=== PATIENT | female | born 1955 | race Caucasian/White ===

== ENCOUNTER 2023-11-06 08:40 | Inpatient (IN) | payer BC, MEDICARE, SELFPAY ==
[2023-10-27 10:52] LABS: Hematocrit 35.5 % (37.0-47.0); Hemoglobin 11.8 g/dL (12.0-16.0); Mean Corp Hgb Conc. 33.2 g/dL (33.0-37.0); Mean Corpuscular Volume 84.1 fL (81.0-99.0); Platelet Count 404 10^3/uL (130-400); Red Blood Cell Count 4.22 10^6/uL (4.20-5.40); Red Cell Dist. Width 12.5 % (11.5-14.5); White Blood Cell Count 9.8 10^3/uL (4.8-10.8)
[2023-10-27 11:04] LABS: ALT (SGPT) 14 U/L (0-35); AST (SGOT) 24 U/L (14-36); Albumin 4.5 g/dl (3.5-5.0); Alkaline Phosphatase 79 U/L (38-126); Blood Urea Nitrogen 21 mg/dl (7-17); Calcium 10.1 mg/dl (8.4-10.2); Carbon Dioxide 29 mmol/L (22-30); Chloride 98 mmol/L (98-107); Glucose 96 mg/dl (70-99); Potassium 4.4 mmol/L (3.5-5.1); Sodium 135 mmol/L (135-145); Total Bilirubin 0.3 mg/dl (0.2-1.3); Total Protein 7.5 g/dl (6.3-8.2); eGFR > 60.00
--- NOTE | 2023-10-27 11:19 | VNURNOTE ---
Patient is scheduled for an elective R shoulder revision on 10/30/23- she is a [facility] patient. Spoke with patient over the phone. Introduced role of [facility]. Patient lives alone with 2 cats in apt with elevator. 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
She confirms she has a shoulder sling. There is a potential for IV antibiotics - TBD. At baseline, patient is independent and thinks she can manage IV antibiotics at home, if needed. Understandably, she is concerned about where the PICC line
might be v. surgical arm restriction. Explained to patient that [facility] does not administer IV meds in the home or manage PICCs. Outside infusion company would be coordinated ? [facility]?
PCP is Dr Summers.
Discussed [facility], nursing and OT at home and post surgical plans. Patient wants to think about nursing and OT. [facility] Intake aware of potential need post-op.
Plan: Referral for [facility] entered in [facility] in case needed. CM to be updated day of surgery with potential IV antibiotic needs.
[2023-10-27 11:22] LABS: Glycohemoglobin (HgbA1c) 6.2 % (4.0-5.6)
[2023-10-27 14:18] VITALS: BMI 22.3
--- NOTE | 2023-11-04 12:48 | VNURNOTE ---
Surgery re-scheduled for 11/05. [facility] Referral updated in [facility].
[2023-11-06] VITALS (13 sets, daily range): BP systolic 112–163; BP diastolic 60–78; PULSE 75; O2SAT 99; BMI 22.3
[2023-11-06] MEDS: NORMOSOL-R 1000 IV ×2 (09:40→14:29)
[2023-11-06] MEDS: CELEBREX 200 MG PO (09:40)
[2023-11-06] MEDS: ZOFRAN 4 MG IV ×2 (14:32→20:51)
[2023-11-06] MEDS: NORCO 5/325 1 TABLET PO (14:44)
--- NOTE | 2023-11-06 15:35 | PTCARENOTE ---
Patient received from PACU in bed; Patient with RUE in sling, non-weight bearing; Bilateral radial pulse +2 to palpation, capillary refill <3 seconds in right hand; Patient has mild loss of sensation to RUE, trace movement to fingers; Patient denies
pain at this time; Patient was nauseous in PACU, nausea is resolving, no vomiting; Patient ambulated to bathroom to void, standby assist; Patient now back in bed; Call fox within reach; Bed in lowest position, wheels locked; IVF infusing; Patient
oriented to room and unit; Assessment ongoing
--- NOTE | 2023-11-06 16:14 | CM ---
Met with patient at bedside; initial assessment completed
Pharmacy verified; [facility] [address], [place], [place]
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
No SNF history
No DME
Friend or family will provide transport home
Plan: Discharge to home with home infusion therapy;
Dianne from [facility] notified via phone; she will follow up with CM on Thursday;
Home Health referral sent to [facility] via [facility]
--- NOTE | 2023-11-06 16:56 | CON.ID ---
Consultation
-
Date/Time Consultation Requested: 11/06/2023 1019
Date/Time Consultation Performed: 11/06/2023 1600
Requesting Provider: Dr. Woodward
Performing Provider: Dr. Amanda
Reason for Consultation: Right shoulder PJI
Chief Complaint / Past History
History of Present Illness
Tracy Sewell is a 68-year-old female being evaluated at the request of Dr. 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 History is obtained from chart review, along with patient interview.
The patient reports that she underwent right shoulder revision in 2020 and in the interim has done quite well. She notes that she was in [place] in early July 2023, but upon return she began to have pain in the shoulder area. She notes that workup
included imaging which showed multiple fluid collections and on 10/26 she was seen in the Orthopedics office, and reviewed notes indicate that she had a palpable effusion. She underwent aspiration with reports that the Synovasure labs were negative,
but she was found to have a significant white count. Today she was admitted to the hospital and underwent explantation of the right shoulder hardware and spacer insertion.
Over the past several months she has complained of ongoing pain along with swelling, but did not notice any redness. She reports that outside labs were negative for Lyme. She denies any prior fevers or chills.
Past History
Additional Past Medical History:
HTN
Endometrial cancer
Mitral valve prolapse
IBS
Dyslipidemia
Thyroid nodule
Additional Past Surgical History:
DANA
Thyroidectomy
Right shoulder surgery (2020)
Allergy History:
cefaclor [From Ceclor] Allergy (Verified 11/06/23 09:13)
Hives; but tolerated recent cefadroxil
clindamycin Allergy (Verified 11/06/23 09:13)
Hives, rash
Penicillins Allergy (Verified 11/06/23 09:13)
Rash but notes OK with amoxicillin / augmentin
sulfamethoxazole [From Bactrim] Allergy (Verified 11/06/23 09:13)
HIVES, thrush (orally), dermatitis
vancomycin Allergy (Verified 11/06/23 09:13)
Rash
Current Antibiotics:
None
Social History
Tobacco: Non-Smoker
Alcohol: Occasional
Drug: None
Personal: Single
Living: Alone
Employment: Employed
Family History
Family History: Not Pertinent
Review of Systems
Vital Signs
Temp Pulse Resp BP Pulse Ox
98.5 F 80 18 163/73 98
11/06/23 16:14 11/06/23 16:14 11/06/23 16:14 11/06/23 16:14 11/06/23 16:14
Physical Exam
Physical Exam
Constitutional: No Acute Distress, Comfortable and Non-toxic
Eyes: Pupils Equal, No Conjunctival Hemorrhage and Sclera Anicteric
Oral: No Thrush
Cardiovascular: Regular Rate and S1/S2; Negative S3/S4
Pulmonary: Negative Wheezes, Rales or Rhonchi
Gastrointestinal: Soft, Non Tender, Non Distended and Normal Bowel Sounds
Musculoskeletal: Other (Right shoulder dressing in place. No surrounding erythema)
Skin: Warm and Dry; Negative Rash or Jaundice
Neurological: Awake, Alert and Oriented
Lab / Diagnostic Study Results
10/27/23 09:47
10/27/23 09:47
Microbiology Results
Micro:
11/06/23 12:59 Body Fluid Culture - Pending
Synovial Fluid Gram Stain - Final
11/06/23 13:16 Fungal Culture - Pending
Shoulder - Right
11/06/23 12:59 Fungal Culture - Pending
Shoulder - Right
11/06/23 12:49 Fungal Culture - Pending
Shoulder - Right
11/06/23 13:16 Tissue Culture - Pending
Shoulder - Right Gram Stain - Pending
11/06/23 12:59 Tissue Culture - Pending
Shoulder - Right Gram Stain - Pending
11/06/23 12:59 Tissue Culture - Pending
Shoulder - Right Gram Stain - Pending
11/06/23 12:59 Fungal Culture - Pending
Shoulder - Right
11/06/23 12:59 Fungal Culture - Pending
Shoulder - Right
11/06/23 12:59 Fungal Culture - Pending
Shoulder - Right
11/06/23 12:59 Tissue Culture - Pending
Shoulder - Right Gram Stain - Pending
11/06/23 12:59 Tissue Culture - Pending
Shoulder - Right Gram Stain - Pending
11/06/23 12:59 Tissue Culture - Pending
Shoulder - Right Gram Stain - Pending
10/27/23 09:47 MRSA Screen - Final
Nose No Methicillin Resistant Staphylococcus aureus isolated.
Assessment / Plan
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
- s/p hardware removal/spacer placement 11/06/2023
HTN
Endometrial cancer
Mitral valve prolapse
IBS
Dyslipidemia
Thyroid nodule
Recommendations:
Cultures are currently pending. Will initiate empiric antibiotic therapy. I had a long discussion regarding reported allergies, and is not clear whether vancomycin is truly an allergy or possibly was given too quickly on prior administration
Will begin therapy with vancomycin. I have ordered it to be given over an extended infusion to prevent any ''red man' syndrome'.
Will await further culture data to hopefully guide further antibiotic therapy.
Will check routine labs in the morning.
Care Review
Plan reviewed with: Physician (Ortho)
[2023-11-06] MEDS: LIPITOR 10 MG PO (17:02)
[2023-11-06] MEDS: ASPIRIN 325 MG PO (17:02)
--- NOTE | 2023-11-06 17:12 | VNURNOTE ---
Received update from RADHA Gray choosing [facility]. Laurita at [facility] Intake aware, referral cancelled.
[2023-11-06] MEDS: VANCOCIN 300 MG IV (17:46)
[2023-11-06] MEDS: VANCOCIN 300 ML IV (17:46)
--- NOTE | 2023-11-06 17:50 | PHA.VAN.IN ---
Assessment
- Assessment
Renal Function: Appears similar to baseline
Concomitant Antimicrobials: NONE
- Previous Dosing Experience
Previous Regimen: NONE
AUC Dosing Plan
- Dosing Variables
Dosing Weight (kg): 57.9
Dosing CrCl (ml/min): 50
Vd coefficient (L/kg): 0.7
E
- Empiric Dosing
Initial / Loading Dose: 1500MG OVER 3 HOURS
Maintenance Regimen: 1GM IV Q24H OVER 2 HOURS
Estimated AUC (mcg*h/mL): 550
Estimated Peak (mcg*h/mL): 37
Estimated Trough (mcg/ml): 12.9
Estimated Half Life (H): 15
EXTENDED INFUSION TIME PER ID REQUEST FOR POSSIBLE RED MAN'S SYNDROME
Pharmacokinetics Vancomycin I
- -
Patient Age: 68
Vancomycin Day #: 1
Indication: Bone And Joint (SHOULDER )
Requesting Provider: TRINI
Pertinent Antimicrobial Allergies:
Allergies
Penicillins Allergy (Verified 11/06/23 09:13)
Rash
childhood
cefaclor [From Ceclor] Allergy (Verified 11/06/23 09:13)
Hives
Hives, joint pain/swelling. Remote; >10 y/a.
clindamycin Allergy (Verified 11/06/23 09:13)
Hives, rash
sulfamethoxazole [From Bactrim] Allergy (Verified 11/06/23 09:13)
HIVES, thrush (orally), dermatitis
trimethoprim [From Bactrim] Allergy (Verified 11/06/23 09:13)
HIVES, thrush (orally), dermatitis
vancomycin Allergy (Verified 11/06/23 09:13)
Rash
Height / Weight:
Height 5 ft 3.5 in
Actual Weight 57.9 kg
- Vital Signs / Lab Results
Temp Pulse Resp BP Pulse Ox
97.8 F 87 18 117/70 98
11/06/23 17:14 11/06/23 17:14 11/06/23 17:14 11/06/23 17:14 11/06/23 17:14
Microbiology Results
11/06/23 12:59 Gram Stain - Preliminary
Shoulder - Right
11/06/23 12:59 Gram Stain - Final
Synovial Fluid
[2023-11-06] MEDS: BACTROBAN 2% OINTMENT 1 APPLIC NASAL (20:43)
[2023-11-06] MEDS: COLACE 100 MG PO (20:43)
[2023-11-06] MEDS: COSOPT EYE DROPS 1 DROP BOTH EYES (20:44)
[2023-11-06] MEDS: TORADOL 15 MG IV (20:44)
[2023-11-06] MEDS: SENOKOT 17.2 MG PO (20:44)
[2023-11-06] MEDS: VISBIOME 1 CAP PO (20:45)
[2023-11-06] MEDS: FIBERCON 1250 MG PO (23:12)
[2023-11-06] MEDS: NEURONTIN 300 MG PO (23:30)
[2023-11-06] MEDS: PROTONIX 40 MG PO (23:30)
[2023-11-06] MEDS: XALATAN OPHTHALMIC SOLUTION 1 DROP BOTH EYES (23:31)
[2023-11-07] VITALS (7 sets, daily range): BP systolic 98–135; BP diastolic 57–77; BMI 22.3
[2023-11-07] MEDS: VANCOCIN 200 IV (06:07)
[2023-11-07] MEDS: SYNTHROID 88 MCG PO (06:07)
[2023-11-07 07:04] LABS: % Basophils 0.3 % (0-2); % Eosinophils 0.1 % (0-6); % Immature Granulocytes 0.4 % (0-0.5); % Lymphocytes 12.1 % (20.5-51.1); % Monocytes 7.4 % (1.7-9.3); % Neutrophils 79.7 % (42.2-75.2); Absolute Lymphocytes 1.2 10^3/uL (1.2-3.4); Absolute Monocytes 0.7 10^3/uL (0.1-0.6); Absolute Neutrophils 7.6 10^3/uL (1.4-6.5); Hematocrit 27.2 % (37.0-47.0); Hemoglobin 8.9 g/dL (12.0-16.0); Mean Corp Hgb Conc. 32.7 g/dL (33.0-37.0); Mean Corpuscular Hgb 27.5 pg (27.0-31.0); Nucleated Red Blood Cells % 0 %; Platelet Count 345 10^3/uL (130-400); Red Blood Cell Count 3.24 10^6/uL (4.20-5.40); Red Cell Dist. Width 12.6 % (11.5-14.5); White Blood Cell Count 9.6 10^3/uL (4.8-10.8)
[2023-11-07 07:28] LABS: Blood Urea Nitrogen 17 mg/dl (7-17); Calcium 8.4 mg/dl (8.4-10.2); Carbon Dioxide 23 mmol/L (22-30); Chloride 105 mmol/L (98-107); Estimated Creatinine Clearance 50 ml/min; Glucose 115 mg/dl (70-99); Potassium 3.8 mmol/L (3.5-5.1); Sodium 139 mmol/L (135-145); eGFR > 60.00
[2023-11-07 07:57] LABS: Erythrocyte Sed Rate 66 mm/hour (0-20)
[2023-11-07] MEDS: ASPIRIN 325 MG PO (08:09)
[2023-11-07] MEDS: TORADOL 15 MG IV ×2 (08:10→20:31)
[2023-11-07] MEDS: COLACE 100 MG PO (08:10)
[2023-11-07] MEDS: SENOKOT 17.2 MG PO (08:15)
[2023-11-07] MEDS: VISBIOME 1 CAP PO ×2 (08:16→20:30)
[2023-11-07] MEDS: FIBERCON 625 MG PO (08:16)
[2023-11-07] MEDS: BACTROBAN 2% OINTMENT 1 APPLIC NASAL ×2 (08:24→20:32)
[2023-11-07] MEDS: COSOPT EYE DROPS 1 DROP BOTH EYES ×2 (08:25→20:32)
--- NOTE | 2023-11-07 08:39 | PHA.VAN.FU ---
Vancomycin Assessment / Plan
- Assessment
Renal Function: Stable
WBC's are: WNL
In the past 24 hrs, patient has been: Afebrile
- Dosing Plan
Continue: vancomycin 1000 mg q24h - first dose 11/06 599
Dosing Comments: dose given over 2 hours to prevent any reaction
- Monitoring Plan
No level(s) ordered at this time: consider levels when pt nears steady state
- Follow Up
Pharmacy will continue to follow.
Vancomycin Follow UP
- -
Patient Age: 68
Vancomycin Day #: 2
Indication: Bone And Joint (SHOULDER )
Requesting Provider: TRINI
Pertinent Antimicrobial Allergies:
Allergies
Penicillins Allergy (Verified 11/06/23 09:13)
Rash
childhood
cefaclor [From Ceclor] Allergy (Verified 11/06/23 09:13)
Hives
Hives, joint pain/swelling. Remote; >10 y/a.
clindamycin Allergy (Verified 11/06/23 09:13)
Hives, rash
sulfamethoxazole [From Bactrim] Allergy (Verified 11/06/23 09:13)
HIVES, thrush (orally), dermatitis
trimethoprim [From Bactrim] Allergy (Verified 11/06/23 09:13)
HIVES, thrush (orally), dermatitis
vancomycin Allergy (Verified 11/06/23 09:13)
Rash
Height / Weight:
Height 5 ft 3.5 in
Actual Weight 57.9 kg
Pertinent Past Medical History: R shoulder revision 2020
- Vital Signs / Lab Results
Temp Pulse Resp BP Pulse Ox
97.9 F 85 16 109/57 97
11/07/23 06:15 11/07/23 06:15 11/07/23 06:15 11/07/23 06:15 11/07/23 06:15
Lab Results - Hematology
11/07/23
06:11
WBC 9.6
Lab Results - Chemistry
11/07/23
06:10
BUN 17
Creatinine 0.9
Estimated Creat Clear 50
Microbiology Results
11/06/23 13:16 Gram Stain - Preliminary
Shoulder - Right
11/06/23 12:59 Gram Stain - Preliminary
Shoulder - Right
11/06/23 12:59 Gram Stain - Preliminary
Shoulder - Right
11/06/23 12:59 Gram Stain - Preliminary
Shoulder - Right
11/06/23 12:59 Gram Stain - Preliminary
Shoulder - Right
11/06/23 12:59 Gram Stain - Preliminary
Shoulder - Right
11/06/23 12:59 Gram Stain - Final
Synovial Fluid
--- NOTE | 2023-11-07 10:05 | W.PN.ORTHO ---
Today's Communication / Plan
-
68-year-old female POD 1 1st Stage Revision R RTSA for PJI, SHERYL, Placement of antibiotic spacer 11/[address] Woodward
- Appreciate ID recommendations. Transitioning from Vancomycin to Ceftriaxone.
- Continue to follow intra-op cultures.
- ESR 66, CRP 62.40. WBC WNL.
- Sling to RUE.
- ASA 325mg once daily x 4 weeks for DVT ppx.
- Pain control.
- Orthopedic surgery will continue to follow along.
Assessment
.
Distal Motor Intact: Yes
Dressing:
Clean, dry and intact.
Scant contained bloody drainage noted within Aquacel dressing.
Sling intact.
Digital ROM intact.
Assessment:
POD 1 1st Stage Revision R RTSA, SHERYL, Placement of antibiotic spacer
Plan
.
Surgery / Date: 11/07/[address] Woodward
DVT Prophylaxis: Aspirin
Activity:
Out of bed.
PT/OT
Discharge Information:
Appreciate CM
Subjective
.
.:
Patient resting comfortably. Reports that her pain has significantly improved since surgery yesterday.
Vital Signs and Labs
.
Vital Signs and Labs:
Lab Results
11/07/23 06:11
11/07/23 06:10
Temp Pulse Resp BP Pulse Ox
98.3 F 79 14 131/70 99
11/07/23 09:04 11/07/23 09:04 11/07/23 09:04 11/07/23 09:04 11/07/23 09:04
Non-invasive Hgb result: labs
--- NOTE | 2023-11-07 10:07 | W.PN.ID1 ---
Date of Service
Date of Service: November 07, 2023
Today's Communication
Continue antibiotics. Transition vancomycin to ceftriaxone.
Assessment / Plan
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
- s/p hardware removal/spacer placement 11/06/2023
Elevated ESR and CRP
HTN
Endometrial cancer
Mitral valve prolapse
IBS
Dyslipidemia
Thyroid nodule
Recommendations:
Cultures are currently pending.
Patient has noted a macular rash on the abdomen today. Although not classic for vancomycin, will discontinue and transition to once daily ceftriaxone with close observation.
Will await further culture data to hopefully guide further antibiotic therapy.
Will check routine labs in the morning.
����������������������������������������������������������
Chief Complaint
-: Other (right shoulder PJI)
Subjective / Review of Systems
Patient seen and examined. Reports some degree of rash on her abdomen today. No shortness of breath.
Review of Systems: No Fever and No Chills
Vital Signs / Physical Exam
Vital Signs
Vital Signs
Temp Pulse Resp BP Pulse Ox
98.3 F 79 14 131/70 99
11/07/23 09:04 11/07/23 09:04 11/07/23 09:04 11/07/23 09:04 11/07/23 09:04
Physical Exam
Constitutional: No Acute Distress, Comfortable and Non-toxic
Eyes: Sclera Anicteric
Cardiovascular: S1/S2; Negative S3/S4
Pulmonary: Non Labored
Gastrointestinal: Soft and Non Tender
Skin: Rash (Very mild macular rash noted on abdomen, but no other areas on the body.)
Neurological: Awake and Alert
Psychological: Calm
Objective Data
Lab Data
Lab Results
11/07/23 06:11
11/07/23 06:10
ESR 66 mm/hour (0-20) H 11/07/23 06:11
Estimated Creat Clear 50 ml/min 11/07/23 06:10
Total Bilirubin 0.3 mg/dl (0.2-1.3) 10/27/23 09:47
AST 24 U/L (14-36) 10/27/23 09:47
ALT 14 U/L (0-35) 10/27/23 09:47
Alkaline Phosphatase 79 U/L (38-126) 10/27/23 09:47
C-Reactive Protein 62.40 mg/L (0.0-10.00) H 11/07/23 06:10
Most recent labs reviewed.
Micro Results:
11/06/23 12:59 Body Fluid Culture - Pending
Synovial Fluid Gram Stain - Final
11/06/23 13:16 Tissue Culture - Pending
Shoulder - Right Gram Stain - Preliminary
11/06/23 12:59 Tissue Culture - Pending
Shoulder - Right Gram Stain - Preliminary
11/06/23 12:59 Tissue Culture - Pending
Shoulder - Right Gram Stain - Preliminary
11/06/23 12:59 Tissue Culture - Pending
Shoulder - Right Gram Stain - Preliminary
11/06/23 12:59 Tissue Culture - Pending
Shoulder - Right Gram Stain - Preliminary
11/06/23 12:59 Tissue Culture - Pending
Shoulder - Right Gram Stain - Preliminary
11/06/23 13:16 Fungal Culture - Pending
Shoulder - Right
11/06/23 12:59 Fungal Culture - Pending
Shoulder - Right
11/06/23 12:49 Fungal Culture - Pending
Shoulder - Right
11/06/23 12:59 Fungal Culture - Pending
Shoulder - Right
11/06/23 12:59 Fungal Culture - Pending
Shoulder - Right
11/06/23 12:59 Fungal Culture - Pending
Shoulder - Right
10/27/23 09:47 MRSA Screen - Final
Nose No Methicillin Resistant Staphylococcus aureus isolated.
Care Review
Plan reviewed with: Other Provider (Ortho)
[2023-11-07] MEDS: STERILE WATER FOR INJECTION 20 ML IV (12:46)
[2023-11-07] MEDS: ROCEPHIN 2000 MG IV (12:50)
[2023-11-07] MEDS: NORCO 5/325 1 TABLET PO (12:57)
[2023-11-07] MEDS: SENOKOT PO (20:29)
[2023-11-07] MEDS: COLACE PO (20:29)
[2023-11-07] MEDS: PROTONIX 40 MG PO (20:30)
[2023-11-07] MEDS: FIBERCON 1250 MG PO (20:30)
[2023-11-07] MEDS: NEURONTIN 300 MG PO (20:30)
[2023-11-07] MEDS: XALATAN OPHTHALMIC SOLUTION 1 DROP BOTH EYES (20:54)
[2023-11-07] MEDS: BENADRYL 25 MG PO (20:54)
[2023-11-08] MEDS: NORCO 5/325 1 TABLET PO (04:23)
[2023-11-08] MEDS: FIBERCON 625 MG PO (07:33)
[2023-11-08] MEDS: VISBIOME 1 CAP PO ×2 (07:33→19:28)
[2023-11-08] MEDS: ASPIRIN 325 MG PO (07:33)
[2023-11-08] MEDS: COSOPT EYE DROPS 1 DROP BOTH EYES ×2 (07:34→19:32)
[2023-11-08] MEDS: COLACE PO ×2 (07:37→19:28)
[2023-11-08] MEDS: SENOKOT PO ×2 (07:38→19:28)
[2023-11-08 07:40] VITALS: BP 116/68
--- NOTE | 2023-11-08 08:43 | W.PN.ORTHO ---
Today's Communication / Plan
-
68-year-old female POD 2 1st Stage Revision R RTSA for PJI, SHERYL, Placement of antibiotic spacer 11/[address] Woodward
- Appreciate ID recommendations. Currently on Ceftriaxone.
- Continue to follow intra-op cultures. Preliminary cultures without growth after 18-24 hours.
- 11/06 Labs: ESR 66, CRP 62.40. WBC WNL.
- Sling to RUE.
- ASA 325mg once daily x 4 weeks for DVT ppx.
- Pain control.
- Orthopedic surgery will continue to follow along.
Assessment
.
Distal Motor Intact: Yes
Dressing:
Clean, dry and intact.
Scant contained bloody drainage noted within Aquacel dressing (stable).
Sling intact.
Digital ROM intact.
Assessment:
POD 2 1st Stage Revision R RTSA, SHERYL, Placement of antibiotic spacer
Plan
.
Surgery / Date: 11/07/[address] Woodward
DVT Prophylaxis: Aspirin
Activity:
Out of bed.
PT/OT
Discharge Information:
Appreciate CM
Subjective
.
.:
Patient resting comfortably. No new complaints overnight. Continues to report improvement in her pain since surgery Thursday.
Vital Signs and Labs
.
Vital Signs and Labs:
Lab Results
11/07/23 06:11
11/07/23 06:10
Temp Pulse Resp BP Pulse Ox
98.6 F 86 12 116/68 96
11/08/23 07:40 11/08/23 07:40 11/08/23 07:40 11/08/23 07:40 11/08/23 07:40
Non-invasive Hgb result: 11.4
--- NOTE | 2023-11-08 10:57 | W.PN.ID1 ---
Date of Service
Date of Service: November 08, 2023
Today's Communication
Continue antibiotics.
Assessment / Plan
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
- s/p hardware removal/spacer placement 11/06/2023
Elevated ESR and CRP
HTN
Endometrial cancer
Mitral valve prolapse
IBS
Dyslipidemia
Thyroid nodule
Recommendations:
Cultures pending, but NGTD.
Continue with ceftriaxone. Would anticipate a 6-week course of therapy.
Home infusion prescription completed and placed on paper chart.
Will follow-up in the office in approximately 2 to 3 weeks. Routine weekly labs will be monitored.
Okay to place PICC line once home infusion benefit has been determined.
����������������������������������������������������������
Chief Complaint
-: Other (right shoulder PJI)
Subjective / Review of Systems
Review of Systems: No Fever and No Chills
Vital Signs / Physical Exam
Vital Signs
Vital Signs
Temp Pulse Resp BP Pulse Ox
98.6 F 86 12 116/68 96
11/08/23 07:40 11/08/23 07:40 11/08/23 07:40 11/08/23 07:40 11/08/23 07:40
Physical Exam
Constitutional: No Acute Distress, Comfortable and Non-toxic
Eyes: No Conjunctival Hemorrhage and Sclera Anicteric
Cardiovascular: S1/S2; Negative S3/S4
Pulmonary: Non Labored
Gastrointestinal: Soft, Non Tender and Non Distended
Wound: Other (right shoulder dressing intact. No significant strikethrough. No surrounding erythema.)
Neurological: Awake and Alert
Psychological: Calm
Objective Data
Lab Data
Lab Results
11/07/23 06:11
11/07/23 06:10
ESR 66 mm/hour (0-20) H 11/07/23 06:11
Estimated Creat Clear 50 ml/min 11/07/23 06:10
Total Bilirubin 0.3 mg/dl (0.2-1.3) 10/27/23 09:47
AST 24 U/L (14-36) 10/27/23 09:47
ALT 14 U/L (0-35) 10/27/23 09:47
Alkaline Phosphatase 79 U/L (38-126) 10/27/23 09:47
C-Reactive Protein 62.40 mg/L (0.0-10.00) H 11/07/23 06:10
Most recent labs reviewed.
Micro Results:
11/06/23 12:59 Body Fluid Culture - Preliminary
Synovial Fluid No Growth After 48 Hours
Gram Stain - Final
11/06/23 13:16 Tissue Culture - Preliminary
Shoulder - Right No Growth After 18-24 Hours
Gram Stain - Preliminary
11/06/23 12:59 Tissue Culture - Preliminary
Shoulder - Right No Growth After 18-24 Hours
Gram Stain - Preliminary
11/06/23 12:59 Tissue Culture - Preliminary
Shoulder - Right No Growth After 18-24 Hours
Gram Stain - Preliminary
11/06/23 12:59 Tissue Culture - Preliminary
Shoulder - Right No Growth After 18-24 Hours
Gram Stain - Preliminary
11/06/23 12:59 Tissue Culture - Preliminary
Shoulder - Right No Growth After 18-24 Hours
Gram Stain - Preliminary
11/06/23 12:59 Tissue Culture - Preliminary
Shoulder - Right No Growth After 18-24 Hours
Gram Stain - Preliminary
11/06/23 13:16 Fungal Culture - Pending
Shoulder - Right
11/06/23 12:59 Fungal Culture - Pending
Shoulder - Right
11/06/23 12:49 Fungal Culture - Pending
Shoulder - Right
11/06/23 12:59 Fungal Culture - Pending
Shoulder - Right
11/06/23 12:59 Fungal Culture - Pending
Shoulder - Right
11/06/23 12:59 Fungal Culture - Pending
Shoulder - Right
10/27/23 09:47 MRSA Screen - Final
Nose No Methicillin Resistant Staphylococcus aureus isolated.
Care Review
Plan reviewed with: Other Provider (Ortho)
--- NOTE | 2023-11-08 11:16 | CM ---
Patient seen at bedside. Patient friends also present and IMM completed. Per Chart review patient for discharge planning with [facility] and home IV antibiotics. 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 CM will continue to follow
for discharge planning needs.
Plan; home with IV antibiotics and [facility]
[2023-11-08] MEDS: ROCEPHIN 2000 MG IV (11:53)
[2023-11-08] MEDS: STERILE WATER FOR INJECTION 20 ML IV (11:53)
[2023-11-08 15:24] VITALS: BP 134/68
[2023-11-08] MEDS: FIBERCON PO (21:25)
[2023-11-08] MEDS: PROTONIX 40 MG PO (21:25)
[2023-11-08] MEDS: NEURONTIN 300 MG PO (21:25)
[2023-11-08] MEDS: XALATAN OPHTHALMIC SOLUTION 1 DROP BOTH EYES (21:25)
[2023-11-08 23:03] VITALS: BP 122/67
[2023-11-09] MEDS: SYNTHROID 88 MCG PO (04:19)
[2023-11-09] MEDS: NORCO 5/325 1 TABLET PO ×2 (04:19→12:14)
[2023-11-09 07:20] VITALS: BP 140/83
[2023-11-09] MEDS: FIBERCON PO ×2 (07:33→21:16)
[2023-11-09] MEDS: COLACE PO ×2 (07:33→20:52)
[2023-11-09] MEDS: SENOKOT PO ×2 (07:33→20:52)
[2023-11-09] MEDS: VISBIOME 1 CAP PO ×2 (07:34→20:49)
[2023-11-09] MEDS: ASPIRIN 325 MG PO (07:34)
[2023-11-09] MEDS: COSOPT EYE DROPS 1 DROP BOTH EYES ×2 (07:35→20:49)
[2023-11-09] MEDS: LIPITOR 10 MG PO (07:36)
[2023-11-09] MEDS: TYLENOL 500 MG PO ×2 (07:58→21:23)
[2023-11-09 09:10] VITALS: BP 126/83
--- NOTE | 2023-11-09 10:17 | W.PN.ID1 ---
Date of Service
Date of Service: November 09, 2023
Today's Communication
Continue abx. Place Picc line
Assessment / Plan
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
- s/p hardware removal/spacer placement 11/06/2023
Elevated ESR and CRP
HTN
Mitral valve prolapse
IBS
Dyslipidemia
Thyroid nodule
Recommendations:
Cultures NGTD.
Continue with ceftriaxone. Would anticipate a 6-week course of therapy.
Home infusion prescription completed and placed on paper chart.
Will follow-up in the office in approximately 2 to 3 weeks. Routine weekly labs will be monitored.
Place PICC line
����������������������������������������������������������
Chief Complaint
-: Other (right shoulder PJI)
Subjective / Review of Systems
Review of Systems: No Fever and No Chills
Vital Signs / Physical Exam
Vital Signs
Vital Signs
Temp Pulse Resp BP Pulse Ox
99.3 F 100 16 140/83 98
11/09/23 07:20 11/09/23 07:20 11/09/23 07:20 11/09/23 07:20 11/09/23 07:20
Physical Exam
Constitutional: No Acute Distress, Comfortable and Non-toxic
Eyes: No Conjunctival Hemorrhage and Sclera Anicteric
Cardiovascular: S1/S2; Negative S3/S4
Pulmonary: Non Labored
Gastrointestinal: Soft, Non Tender and Non Distended
Wound: Other (right shoulder dressing intact. No significant strikethrough. No surrounding erythema.)
Neurological: Awake and Alert
Psychological: Calm
Objective Data
Lab Data
Lab Results
11/07/23 06:11
11/07/23 06:10
ESR 66 mm/hour (0-20) H 11/07/23 06:11
Estimated Creat Clear 50 ml/min 11/07/23 06:10
Total Bilirubin 0.3 mg/dl (0.2-1.3) 10/27/23 09:47
AST 24 U/L (14-36) 10/27/23 09:47
ALT 14 U/L (0-35) 10/27/23 09:47
Alkaline Phosphatase 79 U/L (38-126) 10/27/23 09:47
C-Reactive Protein 62.40 mg/L (0.0-10.00) H 11/07/23 06:10
Most recent labs reviewed.
Micro Results:
11/06/23 12:59 Body Fluid Culture - Preliminary
Synovial Fluid No Growth After 72 Hours
Gram Stain - Final
11/06/23 13:16 Tissue Culture - Preliminary
Shoulder - Right No Growth After 72 Hours
Gram Stain - Preliminary
11/06/23 12:59 Tissue Culture - Preliminary
Shoulder - Right No Growth After 72 Hours
Gram Stain - Preliminary
11/06/23 12:59 Tissue Culture - Preliminary
Shoulder - Right No Growth After 72 Hours
Gram Stain - Preliminary
11/06/23 12:59 Tissue Culture - Preliminary
Shoulder - Right No Growth After 72 Hours
Gram Stain - Preliminary
11/06/23 12:59 Tissue Culture - Preliminary
Shoulder - Right No Growth After 72 Hours
Gram Stain - Preliminary
11/06/23 12:59 Tissue Culture - Preliminary
Shoulder - Right No Growth After 72 Hours
Gram Stain - Preliminary
11/06/23 13:16 Fungal Culture - Pending
Shoulder - Right
11/06/23 12:59 Fungal Culture - Pending
Shoulder - Right
11/06/23 12:49 Fungal Culture - Pending
Shoulder - Right
11/06/23 12:59 Fungal Culture - Pending
Shoulder - Right
11/06/23 12:59 Fungal Culture - Pending
Shoulder - Right
11/06/23 12:59 Fungal Culture - Pending
Shoulder - Right
10/27/23 09:47 MRSA Screen - Final
Nose No Methicillin Resistant Staphylococcus aureus isolated.
--- NOTE | 2023-11-09 10:40 | CM ---
Addendum entered by Sri Lake 11/09/23 14:53:
Patient was seen by Dianne from [facility] today and teaching session was completed at 2pm, patient is for discharge to home today, and has had her IV ABX dose for today, patient's infusion benefit was checked and patient has 0 copays for home
infusion.
Addendum entered by Sri Lake 11/09/23 11:08:
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
Original Note:
Chart reviewed and patient is for PICC line placement today, and the home with IV ABX from [facility], referral sent to [facility].
Plan; Home with [facility] infusion.
--- NOTE | 2023-11-09 11:21 | PN.CDI ---
CDI
- -
CDI:
Physician Documentation Request
Admit Date: 11/06/23 08:40
Dear Doctor Trace,
Please review the following and provide your response in the progress notes.
Clinical Indicators:
- 11/05 Operative Report ' Right shoulder first stage revision, including extensive debridement'
Could you provide, in the progress notes further clarification regarding the debridement.
Please specify the type of debridement performed:
1. Excisional Debridement - defined as removal by excision of devitalized tissue, necrosis or slough
2. Non-excisional debridement - defined as removal of devitalized tissue, necrosis or slough by such methods as irrigation, brushing, scrubbing or washing.
If the debridement was excisional, please also include:
1. Type of instrument used (#11 blade, #15 blade etc.)
2. What was excised (necrotic tissue, gangrenous tissue, slough etc.)
For excisional or non-excisional, please also include:
1. Depth of debridement (skin, subcutaneous tissue, fascia, muscle, bone etc)
2. Size and appearance of the wound (L, W, D, color of wound, drainage)
Use of terms such as suspected, likely, concern for, or probable (associated with a specific diagnosis that is being evaluated, monitored, or treated as if it exists) are acceptable and can be coded in the inpatient setting, when documented at the
time of discharge.
Thank you,
Ismael Mccracken RN
CDI Specialist
Please use your independent medical judgment in providing your response.
--- NOTE | 2023-11-09 11:25 | W.PN.UPDATE ---
Update Note
Progress Note Update
Patient had an excisional debridement of her intra-articular space. A Bovie was used to excise all necrotic tissue and capsule.
[2023-11-09] MEDS: STERILE WATER FOR INJECTION 20 ML IV (13:28)
[2023-11-09] MEDS: ROCEPHIN 2000 MG IV (13:28)
--- NOTE | 2023-11-09 14:01 | W.PN.ORTHO ---
Today's Communication / Plan
-
await hgb and iron studies to determine need for GI eval vs d/c
Assessment
.
Dressing:
Clean, dry and intact.
Assessment:
Right shoulder first stage revision
-extensive debridement, total synovectomy, extraction of both
humeral and glenoid components, placement of antibiotic spacer
Zsyjxo-nge-fafuzumk but hgb declined post-op-11.8 (10/27/23), 8.9 (11/07/23)-reported black tarry stools-recheck Hgb and iron studies--if remains low-heme test stool and keep overnight-hesitate to add PPI due to C. diff risk but reported hx GIB--+
probiotic
Plan
.
Surgery / Date: R TSA Stage 1 Revision 11/06/23 Dr. Woodward
DVT Prophylaxis: Aspirin
Activity:
Out of bed.
PT/OT
Discharge Plan: Home w/ VN
Subjective
.
.:
Patient resting comfortably.
'black tarry stool'
-hx GIB
Vital Signs and Labs
.
Vital Signs and Labs:
Lab Results
11/07/23 06:11
11/07/23 06:10
Temp Pulse Resp BP Pulse Ox
99.3 F 100 16 140/83 98
11/09/23 07:20 11/09/23 07:20 11/09/23 07:20 11/09/23 07:20 11/09/23 07:20
Non-invasive Hgb result: 11.4
Physical Exam
-
HEENT: No pallor, cyanosis, or jaundice. Throat clear.
NECK: Supple. No JVD.
RESPIRATORY: Lungs clear to auscultation.
CVS: S1, S2 normal. RRR.� No murmur, rub or gallop.
ABDOMEN: Soft, non-tender. No distension. BS+/normal.
EXTREMITIES: strength equal, no calf pain with palpation
NEONATAL NURSE: AOx3. No focal deficits. assistant art director grossly intact
--- NOTE | 2023-11-09 14:29 | W.DS.TRANS ---
Addendum entered and electronically signed by Shonna Noel PA-C 11/10/23 13:49:
d/c famotidine
+ Rx Protonix
+ Rx HCTZ
Original Note:
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
-
Discharge Instructions:
Sleep Apnea Risk Low
Discharge Diagnosis/Procedures R TSA Stage 1 Revision 11/06/23
Diet As tolerated
Additional Activity RUE NWB
Driving Restrictions No driving
Blood Work ESR, CRP, CBC w diff, CMP---weekly-results to
PCP, Trace Amanda
Other Services VN
Instructions:
Stand-Alone Forms: Total Shoulder Replacement D/C
Changes to Home Medications: Yes
Discharge Medications:
DC Medications w/original date entered in [facility]
atorvastatin 10 mg tablet 10 mg PO DIRECTED High Cholesterol 05/05/15
Metamucil 1 cap PO DAILY Constipation 12/27/20
Metamucil 2 cap PO HS Constipation 12/27/20
cholecalciferol (vitamin D3) 50 mcg (2,000 unit) tablet 2,000 units PO DAILY Supplement 12/27/20
latanoprost 0.005 % eye drops 1 drp BOTH EYES HS Eye Condition 12/27/20
levothyroxine 88 mcg tablet 88 mcg PO MOTUWETHFRSA Thyroid 12/27/20
lifitegrast 5 % eye drops in a dropperette (Xiidra) 1 drp BOTH EYES BID Eye Condition 12/27/20
dorzolamide 22.3 mg-timolol 6.8 mg/mL eye drops (Cosopt) 1 drp ophthalmic (eye) BID Eye Condition 12/31/20
hydrochlorothiazide 25 mg tablet 25 mg PO DAILYPRN PRN HTN ##0 01/15/21
ascorbic acid (vitamin C) 1,000 mg tablet (Vitamin C) 1,000 mg PO DAILY Supplement 10/27/23
collagen 2 dose PO DAILY Supplement 10/27/23
multivitamin 1 tab PO DAILY Supplement 10/27/23
Turmeric With Chondroitin 2 cap PO DAILY Supplement 11/07/23
mupirocin 2 % topical ointment 1 applic intranasal BID Skin Issues 11/07/23
L.acidoph, paracasei,B. lactis 10 billion cell capsule 1 ea PO BID Supplement #0 caps 11/09/23
acetaminophen 325 mg tablet 650 mg (2 x 325 mg) PO QID #30 tabs 11/09/23
aspirin 81 mg tablet,delayed release 81 mg PO BID Blood clot prevention/tx #60 tabs 11/09/23
ceftriaxone 2 gram solution for injection 2,000 mg IV Q24H Infection #42 ea 11/09/23
docusate sodium 100 mg capsule (Colace) 100 mg PO BID stool softner #1 cap 11/09/23
famotidine 20 mg tablet 20 mg PO HS #30 tabs 11/09/23
gabapentin 300 mg capsule 300 mg PO HS sleep/pain #10 caps 11/09/23
magnesium hydroxide 400 mg/5 mL oral suspension (Milk of Magnesia) 30 ml PO HS PRN Constipation #1 mL 11/09/23
oxycodone 5 mg tablet 5 mg PO Q6H PRN 1 tab moderate pain, 2 tabs severe pain #30 tabs 11/09/23
sennosides 8.6 mg tablet (Senokot) 17.2 mg (2 x 8.6 mg) PO BID laxative #2 tabs 11/09/23
Home Medication Changes
aspirin 81 mg tablet,delayed release 81 mg PO BID Blood clot prevention/tx #60 tabs 11/09/23
ceftriaxone 2 gram solution for injection 2,000 mg IV Q24H Infection #42 ea 11/09/23
famotidine 20 mg tablet 20 mg PO HS #30 tabs 11/09/23
gabapentin 300 mg capsule 300 mg PO HS sleep/pain #10 caps 11/09/23
oxycodone 5 mg tablet 5 mg PO Q6H PRN 1 tab moderate pain, 2 tabs severe pain #30 tabs 11/09/23
Pending Results: Yes
Additional Pending Results:
INTRA-OP CULTURES
REPEAT CBC
IRON STUDIES
[2023-11-09 14:36] LABS: Hematocrit 28.8 % (37.0-47.0); Hemoglobin 9.5 g/dL (12.0-16.0); Mean Corpuscular Hgb 27.1 pg (27.0-31.0); Mean Corpuscular Volume 82.3 fL (81.0-99.0); Mean Platelet Volume 8.6 fL (7.4-10.4); Platelet Count 344 10^3/uL (130-400); Red Cell Dist. Width 12.9 % (11.5-14.5); White Blood Cell Count 7.8 10^3/uL (4.8-10.8)
--- NOTE | 2023-11-09 15:08 | CON.GI ---
Addendum entered and electronically signed by Delores Muniz MD 11/09/23 17:13:
I saw and examined the patient.
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
Comment: This patient is a 68-year-old woman with a history of a duodenal ulcer, hypertension and a recent septic shoulder who is on NSAIDs as well as a PPI. In the hospital she had black stool however she was asymptomatic with no abdominal pain or
vomiting. She was on ceftriaxone which can also cause the symptoms. Her hemoglobin was lower than her noted baseline but had not been regularly checked.
abd: soft,nontender
impression
black stool, heme neg (possibly due to cefriaxone though has hx of PUD)
plan:
ppi
check hgb in am
if hgb drops then egd
if hgb stable then continue PPI and can be d/isha with outpatient f/u
Original Note:
Consultation
-
Date/Time Consultation Requested: 11/09/23 1430
Date/Time Consultation Performed: 11/09/23 1500
Requesting Provider: Debbie Noel PA-C
Performing Provider: JELENA aCzares, Delores Muniz MD
Reason for Consultation: anemia, black stools
Medical History
Chief Complaint / HPI
Chief Complaint: black tarry stools
History of Present Illness:
Pt is a 68yo with hx endometrial CA, duodenal ulcer with prior GI bleeding, MVP, HTN, DANA/BSO, hernia repair and prior shoulder surgery with recent increased shoulder pain over last few weeks. 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 She continued with shoulder pain and was seen by Dr. Woodward with concern for right shoulder with
septic periprosthetic infection with revision/debridement and spacer placement with plan for OP antibiotics continued on discharge. She was noted with hbg 11.8 on 10/26 and post op hbg 8.9 then 9.5 with reports of initially brown stool then black
tarry loose stools. She was concerned for possible reaction to antibiotics and asked to see for concern for GI bleeding. Last EGD 2016 with erosive gastritis with duodenal ulcer with clip and repeat with noted healing. Last colonoscopy 2018 with
diverticulosis, hemorrhoids. Pt denies Pepto or iron use.
Past Medical History
Past Medical History: Cancer (endometrial CA), HTN, Valvular Disease (MVP) and Other (UGI bleed, duodenal ulcer, glaucoma)
Past Surgical History: Gynecological (cervical polyp with DANA/BSO) and Other (anal surgery for anal fissure, surgery for thyroid growth, sinus surgery, umbilical hernia repair )
Social History
Tobacco: Non-Smoker
Alcohol: Occasional
Drug: None
Living: Alone
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
Family History
Family History: Other (uncle with colon CA )
Allergies / Home Medications
Allergy/AdvReac Type Severity Reaction Status Date / Time
cefaclor [From Ceclor] Allergy Hives Verified 11/06/23 09:13
clindamycin Allergy Hives, rash Verified 11/06/23 09:13
Penicillins Allergy Rash Verified 11/06/23 09:13
sulfamethoxazole Allergy HIVES, Verified 11/06/23 09:13
[From Bactrim] thrush
(orally),
dermatitis
trimethoprim [From Bactrim] Allergy HIVES, Verified 11/06/23 09:13
thrush
(orally),
dermatitis
vancomycin Allergy Rash Verified 11/06/23 09:13
�Medication �Instructions �Recorded
atorvastatin 10 mg tablet 10 mg PO DIRECTED High 05/05/15
Cholesterol
Metamucil 1 cap PO DAILY Constipation 12/27/20
Metamucil 2 cap PO HS Constipation 12/27/20
cholecalciferol (vitamin D3) 50 2,000 units PO DAILY Supplement 12/27/20
mcg (2,000 unit) tablet
latanoprost 0.005 % eye drops 1 drp BOTH EYES HS Eye Condition 12/27/20
levothyroxine 88 mcg tablet 88 mcg PO MOTUWETHFRSA Thyroid 12/27/20
lifitegrast 5 % eye drops in a 1 drp BOTH EYES BID Eye Condition 12/27/20
dropperette (Xiidra)
dorzolamide 22.3 mg-timolol 6.8 1 drp ophthalmic (eye) BID Eye 12/31/20
mg/mL eye drops (Cosopt) Condition
hydrochlorothiazide 25 mg tablet 25 mg PO DAILYPRN PRN HTN ##0 01/15/21
ascorbic acid (vitamin C) 1,000 mg 1,000 mg PO DAILY Supplement 10/27/23
tablet (Vitamin C)
collagen 2 dose PO DAILY Supplement 10/27/23
multivitamin 1 tab PO DAILY Supplement 10/27/23
Turmeric With Chondroitin 2 cap PO DAILY Supplement 11/07/23
mupirocin 2 % topical ointment 1 applic intranasal BID Skin Issues 11/07/23
L.acidoph, paracasei,B. lactis 10 1 ea PO BID Supplement #0 caps 11/09/23
billion cell capsule
acetaminophen 325 mg tablet 650 mg (2 x 325 mg) PO QID #30 tabs 11/09/23
aspirin 81 mg tablet,delayed 81 mg PO BID Blood clot 11/09/23
release prevention/tx #60 tabs
ceftriaxone 2 gram solution for 2,000 mg IV Q24H Infection #42 ea 11/09/23
injection
docusate sodium 100 mg capsule 100 mg PO BID stool softner #1 cap 11/09/23
(Colace)
famotidine 20 mg tablet 20 mg PO HS #30 tabs 11/09/23
gabapentin 300 mg capsule 300 mg PO HS sleep/pain #10 caps 11/09/23
magnesium hydroxide 400 mg/5 mL 30 ml PO HS PRN Constipation #1 mL 11/09/23
oral suspension (Milk of Magnesia)
oxycodone 5 mg tablet 5 mg PO Q6H PRN 1 tab moderate 11/09/23
pain, 2 tabs severe pain #30 tabs
sennosides 8.6 mg tablet (Senokot) 17.2 mg (2 x 8.6 mg) PO BID 11/09/23
laxative #2 tabs
Review of Systems
-
History Source: Patient
Constitutional: Reports No Symptoms
EENT: Reports No Symptoms
Respiratory: Reports No Symptoms
Cardiac: Reports No Symptoms
Abdomen/GI: Reports Black Stools
: Reports No Symptoms
Musculoskeletal: Reports Other (right shoulder pain with improvement since surgery )
Neurological: Reports No Symptoms
Endocrine: Reports No Symptoms
Hematologic/Lymphatic: Reports Bleeding (black stools)
Vital Signs
Temp Pulse Resp BP Pulse Ox
99.3 F 100 16 140/83 98
11/09/23 07:20 11/09/23 07:20 11/09/23 07:20 11/09/23 07:20 11/09/23 07:20
Physical Exam
Exam
General: Well Developed, Well Nourished and No Apparent Distress
HEENT: Normocephalic and Anicteric
Respiratory: Clear
Cardiac: Regular Rhythm
GI: Soft, Non Tender and Non Distended
Rectal: Other (no stools in rectal vault, no masses, mucous tested was negative )
Musculoskeletal: No Clubbing and No Cyanosis
Skin: Warm and Dry
Neuro: Awake, Alert and AO x 3
Psych: Calm
Results
WBC 7.8 10^3/uL (4.8-10.8) 11/09/23 14:27
Hgb 9.5 g/dL (12.0-16.0) L 11/09/23 14:27
Hct 28.8 % (37.0-47.0) L 11/09/23 14:27
MCV 82.3 fL (81.0-99.0) 11/09/23 14:27
Plt Count 344 10^3/uL (130-400) 11/09/23 14:27
Absolute Neuts (auto) 7.6 10^3/uL (1.4-6.5) H 11/07/23 06:11
Sodium 139 mmol/L (135-145) 11/07/23 06:10
Potassium 3.8 mmol/L (3.5-5.1) 11/07/23 06:10
Chloride 105 mmol/L (98-107) 11/07/23 06:10
Carbon Dioxide 23 mmol/L (22-30) 11/07/23 06:10
BUN 17 mg/dl (7-17) 11/07/23 06:10
Creatinine 0.9 mg/dL (0.6-1.0) 11/07/23 06:10
Calcium 8.4 mg/dl (8.4-10.2) 11/07/23 06:10
Total Bilirubin 0.3 mg/dl (0.2-1.3) 10/27/23 09:47
AST 24 U/L (14-36) 10/27/23 09:47
ALT 14 U/L (0-35) 10/27/23 09:47
Alkaline Phosphatase 79 U/L (38-126) 10/27/23 09:47
Diagnostic Image Results:
Prior GI Procedures:
EGD: 04/2015 [facility] - Z-line irregular, 35 cm from the incisors.
- LA Grade A reflux esophagitis.
- Chronic erosive gastritis.
- One duodenal ulcer. Clips were placed.
EGD: 06/2015- [facility] - Z-line regular, 40 cm from the incisors.
- Normal esophagus.
- Normal stomach. Biopsied.
- Normal examined duodenum
bx neg H pylori
Colonoscopy: 04/2017 The examined portion of the ileum was normal.
- The entire examined colon is normal. Biopsied.
- Diverticulosis in the descending colon.
- Internal hemorrhoids.
Assessment / Plan
-
Pt is a 68yo with hx endometrial CA, duodenal ulcer with prior GI bleeding, MVP, HTN, DANA/BSO, hernia repair and prior shoulder surgery with recent increased shoulder pain over last few weeks. 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 She continued with shoulder pain and was seen by Dr. Woodward with concern for right shoulder with
septic periprosthetic infection with revision/debridement and spacer placement with plan for OP antibiotics continued on discharge. She was noted with hbg 11.8 on 10/26 and post op hbg 8.9 then 9.5 with reports of initially brown stool then black
tarry loose stools. She was concerned for possible reaction to antibiotics and asked to see for concern for GI bleeding. Last EGD 2016 with erosive gastritis with duodenal ulcer with clip and repeat with noted healing. Last colonoscopy 2018 with
diverticulosis, hemorrhoids. Pt denies Pepto or iron use.
-black tarry stools
--anemia
-recent NSAID use
-s/p shoulder revision for septic periprostatic infection with first stage revision 11/05
-hx GI bleed duodenal ulcer/gastric erosions 2016 with clip placement
other med problems:
-endometrial CA/DANA/BSO
-MVP
-HTN
-DANA/SBO
-hernia repair
PLAN:
etiology of anemia with tarry stool with concern for GI bleed, ? antibiotic related vs other
rectal exam with no stool in rectal vault
trend hbg and stool record
check BUN in AM
ok for regular diet tonight
NPO for AM to reassess need for EGD tomorrow
change PPI BID IV
-
-
Thank you for consultation and allowing me to participate in the patient's care. Please call the parts person GI physician during the after hours with any questions or concerns.
[2023-11-09 15:17] LABS: Iron 33 ug/dl (37-170)
[2023-11-09 15:27] LABS: Percent Saturation 14 % (20-50); Total Iron Binding Capacity 231 ug/dl (265-497)
[2023-11-09 15:30] VITALS: BP 165/76
[2023-11-09] MEDS: NSS (PRESERVATIVE FREE) 10 ML IV (20:49)
[2023-11-09] MEDS: FLORASTOR 250 MG PO (20:50)
[2023-11-09] MEDS: PROTONIX IV 40 MG IV (20:51)
[2023-11-09] MEDS: XALATAN OPHTHALMIC SOLUTION 1 DROP BOTH EYES (21:10)
[2023-11-09] MEDS: PEPCID 20 MG PO (21:23)
[2023-11-09] MEDS: NEURONTIN 300 MG PO (21:23)
[2023-11-09 23:40] VITALS: BP 149/63
[2023-11-10 04:21] LABS: Hematocrit 28.4 % (37.0-47.0); Hemoglobin 9.5 g/dL (12.0-16.0); Mean Corp Hgb Conc. 33.5 g/dL (33.0-37.0); Mean Corpuscular Hgb 28.3 pg (27.0-31.0); Mean Corpuscular Volume 84.5 fL (81.0-99.0); Mean Platelet Volume 8.6 fL (7.4-10.4); Platelet Count 307 10^3/uL (130-400); Red Blood Cell Count 3.36 10^6/uL (4.20-5.40); Red Cell Dist. Width 12.6 % (11.5-14.5); White Blood Cell Count 6.5 10^3/uL (4.8-10.8)
[2023-11-10 04:34] LABS: INR 1.11; PT 14.2 Sec (11.4-14.6)
[2023-11-10 04:44] LABS: Blood Urea Nitrogen 15 mg/dl (7-17); Carbon Dioxide 24 mmol/L (22-30); Chloride 108 mmol/L (98-107); Estimated Creatinine Clearance 56 ml/min; Glucose 104 mg/dl (70-99); Potassium 3.8 mmol/L (3.5-5.1); Sodium 141 mmol/L (135-145); eGFR > 60.00
[2023-11-10] MEDS: SYNTHROID 88 MCG PO (05:50)
[2023-11-10] MEDS: TYLENOL 500 MG PO (05:55)
[2023-11-10 07:00] VITALS: BP 171/87
--- NOTE | 2023-11-10 08:00 | PN.CDI ---
CDI
- -
CDI:
Physician Documentation Request
Admit Date: 11/06/23 08:40
Dear Doctor Trace,
Please review the following and provide your response in the progress notes.
Clinical Indicators:
The diagnosis of osteomyelitis was documented on 11/05 Operative Report but is not consistently noted in subsequent documentation.
- 11/05 OP report 'It was noted that the bone around the stem was soft, consistent with possible osteomyelitis'
- Right shoulder tissue cultures with no growth, awaiting fungal cultures
Please clarify the following:
____ - Osteomyelitis was present on admission
____ - Osteomyelitis was ruled out
____ - Osteomyelitis is still a likely, suspected, probable diagnosis
____ - Other
Use of terms such as suspected, likely, concern for, or probable (associated with a specific diagnosis that is being evaluated, monitored, or treated as if it exists) are acceptable and can be coded in the inpatient setting, when documented at the
time of discharge.
Thank you,
Ismael Mccracken RN
CDI Specialist
Please use your independent medical judgment in providing your response.
--- NOTE | 2023-11-10 08:24 | W.PN.GI.CBS2 ---
Today's Communication / Plan
-
Stool today green
Hbg uptrending
Minimize NSAID use as much as possible
Resumed diet
Ok from GI perspective for hosp d/c today. She will FU with Dr Weber OP basis
Assessment / Plan
-
Pt is a 68yo with hx endometrial CA, duodenal ulcer with prior GI bleeding, MVP, HTN, DANA/BSO, hernia repair and prior shoulder surgery with recent increased shoulder pain over last few weeks. 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 She continued with shoulder pain and was seen by Dr. Woodward with concern for right shoulder with
septic periprosthetic infection with revision/debridement and spacer placement with plan for OP antibiotics continued on discharge. She was noted with hbg 11.8 on 10/26 and post op hbg 8.9 then 9.5 with reports of initially brown stool then black
tarry loose stools. She was concerned for possible reaction to antibiotics and asked to see for concern for GI bleeding. Last EGD 2015 with erosive gastritis with duodenal ulcer with clip and repeat with noted healing. Last colonoscopy 2018 with
diverticulosis, hemorrhoids. Pt denies Pepto or iron use.
Impression
-black tarry stools
--anemia
-recent NSAID use
-s/p shoulder revision for septic periprostatic infection with first stage revision 11/05
-hx GI bleed duodenal ulcer/gastric erosions 2016 with clip placement
-endometrial CA/DANA/BSO
-MVP
-HTN
-DANA/SBO
-hernia repair
Plan
- Hgb uptrending without transfusion
- Stools today is green
- C/w PPI daily basis
- Ok from GI perspective for hosp d/c
- Minimize NSAID use as much as a possible
- Resume regular diet
GI will sign off please call for questions
She will FU with Dr Weber/GI outpt basis. All questions answered.
Subjective
Subjective
Date of Service: November 10, 2023
No issues with dinner. This AM passed a large green stool. Denies abd pain, nausea or vomiting.
Objective
Data Reviewed
Laboratory Data:
Laboratory Results
11/10/23 04:13
11/10/23 04:13
Laboratory Results
PT 14.2 Sec (11.4-14.6) 11/10/23 04:13
INR 1.11 11/10/23 04:13
Total Bilirubin 0.3 mg/dl (0.2-1.3) 10/27/23 09:47
AST 24 U/L (14-36) 10/27/23 09:47
ALT 14 U/L (0-35) 10/27/23 09:47
Alkaline Phosphatase 79 U/L (38-126) 10/27/23 09:47
Vital Signs and I&O:
Vital Signs
Temp Pulse Resp BP Pulse Ox
98.8 F 93 14 171/87 99
11/10/23 07:00 11/10/23 07:00 11/10/23 07:00 11/10/23 07:00 11/10/23 07:00
I&O
11/09/23 11/10/23 11/11/23
06:59 06:59 06:59
Intake Total 1140 / 1140 1270 / 1270
Balance 1140 / 1140 1270 / 1270
Physical Exam
Physical Exam
GEN: No acute distress, conversant, pleasant
HEENT: anicteric, extraocular movements intact, clear oropharynx without exudates
GI: soft, non-distended, not tender to palpation, normal active bowel sounds, no hepatosplenomegaly
EXT: warm, well perfused, trace edema bilaterally
NEURO: AAOx3, non-focal
--- NOTE | 2023-11-10 08:27 | W.PN.UPDATE ---
Update Note
Progress Note Update
Osteomyelitis of the proximal humerus remains a likely diagnosis.
[2023-11-10] MEDS: FLORASTOR 250 MG PO (08:33)
[2023-11-10] MEDS: FIBERCON 625 MG PO (08:33)
[2023-11-10] MEDS: VISBIOME 1 CAP PO (08:33)
[2023-11-10] MEDS: NSS (PRESERVATIVE FREE) 10 ML IV (08:33)
[2023-11-10] MEDS: PROTONIX IV 40 MG IV (08:33)
[2023-11-10] MEDS: COSOPT EYE DROPS 1 DROP BOTH EYES (08:34)
[2023-11-10] MEDS: SENOKOT PO (08:34)
[2023-11-10] MEDS: COLACE PO (08:34)
[2023-11-10] MEDS: ORETIC 25 MG PO (08:43)
[2023-11-10 11:11] VITALS: BP 187/92
[2023-11-10 11:43] VITALS: BP 144/72
[2023-11-10] MEDS: STERILE WATER FOR INJECTION 20 ML IV (11:45)
[2023-11-10] MEDS: ROCEPHIN 2000 MG IV (11:45)
--- NOTE | 2023-11-10 13:11 | W.PN.ID1 ---
Date of Service
Date of Service: November 10, 2023
Today's Communication
Continue abx.
Assessment / Plan
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
- s/p hardware removal/spacer placement 11/06/2023
Elevated ESR and CRP
HTN
Mitral valve prolapse
IBS
Dyslipidemia
Thyroid nodule
Recommendations:
Cultures NGTD.
Continue with ceftriaxone to complete a 6-week course of therapy.
Home infusion prescription completed and placed on paper chart.
Will follow-up in the office in approximately 2 to 3 weeks. Routine weekly labs will be monitored.
PICC line placed
����������������������������������������������������������
Chief Complaint
-: Other (right shoulder PJI)
Subjective / Review of Systems
Review of Systems: No Fever and No Chills
Vital Signs / Physical Exam
Vital Signs
Vital Signs
Temp Pulse Resp BP Pulse Ox
98.2 F 86 16 144/72 99
11/10/23 11:11 11/10/23 11:11 11/10/23 11:11 11/10/23 11:43 11/10/23 11:11
Physical Exam
Constitutional: No Acute Distress, Comfortable and Non-toxic
Eyes: Sclera Anicteric
Pulmonary: Non Labored
Gastrointestinal: Non Distended
Skin: Negative Rash or Jaundice
Wound: Other (right shoulder dressing intact. No significant strikethrough. No surrounding erythema.)
Neurological: Awake and Alert
Psychological: Calm
Lines: PICC (LUE; exit site without erythema.)
Objective Data
Lab Data
Lab Results
11/10/23 04:13
11/10/23 04:13
ESR 66 mm/hour (0-20) H 11/07/23 06:11
PT 14.2 Sec (11.4-14.6) 11/10/23 04:13
INR 1.11 11/10/23 04:13
Estimated Creat Clear 56 ml/min 11/10/23 04:13
Total Bilirubin 0.3 mg/dl (0.2-1.3) 10/27/23 09:47
AST 24 U/L (14-36) 10/27/23 09:47
ALT 14 U/L (0-35) 10/27/23 09:47
Alkaline Phosphatase 79 U/L (38-126) 10/27/23 09:47
C-Reactive Protein 62.40 mg/L (0.0-10.00) H 11/07/23 06:10
Most recent labs reviewed.
Micro Results:
11/06/23 12:59 Tissue Culture - Preliminary
Shoulder - Right NO GROWTH
Gram Stain - Preliminary
11/06/23 12:59 Tissue Culture - Preliminary
Shoulder - Right NO GROWTH
Gram Stain - Preliminary
11/06/23 12:59 Tissue Culture - Preliminary
Shoulder - Right NO GROWTH
Gram Stain - Preliminary
11/06/23 12:59 Tissue Culture - Preliminary
Shoulder - Right NO GROWTH
Gram Stain - Preliminary
11/06/23 12:59 Tissue Culture - Preliminary
Shoulder - Right NO GROWTH
Gram Stain - Preliminary
11/06/23 13:16 Tissue Culture - Preliminary
Shoulder - Right NO GROWTH
Gram Stain - Preliminary
11/06/23 12:59 Body Fluid Culture - Preliminary
Synovial Fluid NO GROWTH
Gram Stain - Final
11/06/23 12:59 Fungal Culture - Preliminary
Shoulder - Right Culture in progress.
Positive cultures are reported as soon as detected.
Final report to follow in four to five weeks.
11/06/23 12:49 Fungal Culture - Preliminary
Shoulder - Right Culture in progress.
Positive cultures are reported as soon as detected.
Final report to follow in four to five weeks.
11/06/23 13:16 Fungal Culture - Preliminary
Shoulder - Right Culture in progress.
Positive cultures are reported as soon as detected.
Final report to follow in four to five weeks.
11/06/23 12:59 Fungal Culture - Preliminary
Shoulder - Right Culture in progress.
Positive cultures are reported as soon as detected.
Final report to follow in four to five weeks.
11/06/23 12:59 Fungal Culture - Pending
Shoulder - Right
11/06/23 12:59 Fungal Culture - Preliminary
Shoulder - Right Culture in progress.
Positive cultures are reported as soon as detected.
Final report to follow in four to five weeks.
10/27/23 09:47 MRSA Screen - Final
Nose No Methicillin Resistant Staphylococcus aureus isolated.
--- NOTE | 2023-11-10 13:22 | CM ---
Chart reviewed and patient is for possible discharge to home today, patient to return to home on IV ABX, ABX set up with [facility] infusion. No copay. Patient is for possible discharge today.
Plan; Home with [facility] infusion.
[2023-11-10] MEDS: FERRLECIT 110 MG IV (13:24)
--- NOTE | 2023-11-10 13:32 | W.PN.ORTHO ---
Today's Communication / Plan
-
d/c
Assessment
.
Distal Motor Intact: Yes
Dressing:
Clean, dry and intact.
Assessment:
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
-extensive debridement, total synovectomy, extraction of both
humeral and glenoid components, placement of antibiotic spacer
--final intraoperative cultures pending
--d/c with ID f/u and weekly CRP, ESR, CBC w/ diff
Hx GIB
Pdrazg-mmq-dsuozwim but hgb declined post-op-11.8 (10/27/23), 8.9 (11/07/23)-reported black tarry stools
-iron khy-nmuscv-AJ Ferrous Gluconate infused to boost stores-hgb stable today with heme test negative
-continue probiotic for C. diff prevention
-Rx PPI and f/u GI
-decrease DVT ppx asa 81mg bid w food
-monitor hgb outpatient
AWN-obcfgafqulm-BQCA dosed-BP recech 144/72-patient to resume at home w/ parameter and f/u PCP
Plan
.
Surgery / Date: R TSA Stage 1 Revision 11/06/23 Dr. Woodward
DVT Prophylaxis: Aspirin (asa 81mg bid)
Activity:
Out of bed.
PT/OT
Discharge Plan: Home w/ VN
Subjective
.
.:
Patient resting comfortably.
Vital Signs and Labs
.
Vital Signs and Labs:
Lab Results
11/10/23 04:13
11/10/23 04:13
Temp Pulse Resp BP Pulse Ox
98.2 F 86 16 144/72 99
11/10/23 11:11 11/10/23 11:11 11/10/23 11:11 11/10/23 11:43 11/10/23 11:11
PT 14.2 Sec (11.4-14.6) 11/10/23 04:13
INR 1.11 11/10/23 04:13
Non-invasive Hgb result: 11.4
Physical Exam
-
HEENT: No pallor, cyanosis, or jaundice. Throat clear.
NECK: Supple. No JVD.
RESPIRATORY: Lungs clear to auscultation.
CVS: S1, S2 normal. RRR.� No murmur, rub or gallop.
ABDOMEN: Soft, non-tender. No distension. BS+/normal.
EXTREMITIES: strength equal, no calf pain with palpation
HVAC MECHANICAL ENGINEER: AOx3. No focal deficits. associate civil engineer grossly intact
[2023-11-10] MEDS: NORCO 5/325 1 TABLET PO (14:46)
[2023-11-10 15:00] VITALS: BP 138/76
== END 2023-11-10 15:17 | disposition home or self-care (01) | DRG 496 ==
LOC: 2 SOUTH 08:40
PROVIDERS: Nurse Practitioner Adult Health; Physician Assistant Medical; ADMITTING PHYSICIAN Specialist; CONSULT PHYSICIAN Internal Medicine Infectious Disease; FAMILY PHYSICIAN Family Medicine; OTHER PHYSICIAN Internal Medicine
PROC: 0RHJ08Z Insertion of Spacer into Right Shoulder Joint, Open Approach (ICD-10-PCS; 2023-11-06)
PROC: 0RBJ0ZZ Excision of Right Shoulder Joint, Open Approach (ICD-10-PCS; 2023-11-06)
PROC: 0RPJ0JZ Removal of Synthetic Substitute from Right Shoulder Joint, Open Approach (ICD-10-PCS; 2023-11-06)
DX: T84.59XA Infection and inflammatory reaction due to other internal joint prosthesis, initial encounter (principal); M00.811 Arthritis due to other bacteria, right shoulder; M86.9 Osteomyelitis, unspecified; D64.9 Anemia, unspecified; I10 Essential (primary) hypertension; Y81.2 Prosthetic and other implants, materials and accessory general- and plastic-surgery devices associated with adverse incidents
CPT/HCPCS: 88304; 88332; 36415; 71045; 73020; 80048; 80053; 82728; 83036; 83540; 83550; 85025; 85027; 85610; 85652; 86140; 86850; 86900; 86901; 87015; 87070; 87102; 87176; 87205; 88331; 89060; 93005; 97110; 97166; 97535; C1713; C1776; J2916

== ENCOUNTER 2023-12-06 15:11 | Emergency (ER) | payer BC, MEDICARE, SELFPAY ==
[2023-12-06 15:20] VITALS: BP 185/110
[2023-12-06 15:49] VITALS: BMI 29.5
[2023-12-06 16:21] VITALS: BP 151/82
[2023-12-06 16:23] VITALS: BP 143/80
--- NOTE | 2023-12-06 17:13 | ED.GENMED ---
History of Present Illness
General
Chief Complaint: Skin Problem
Source: patient and other (Friend)
Exam Limitations: none
Time Seen by Provider: 12/06/23 15:28
History of Present Illness
History of Present Illness:
68-year-old female who presents with discoloration of her skin around the wound of her right shoulder. She has a complicated recent history. The patient developed pain in an area where she had previous shoulder surgery 3 years after her original
surgery. It was determined that there was a concern for infection. The hardware was removed and she was given antibiotic spacer. Patient is currently on IV daptomycin and follows with infectious disease and orthopedics. She also admits that she
recently had a fluid collection and had a visit in the office and that it burst and drained everywhere. She does state that it feels like it is a little more swollen. No fevers. No pain. Of note, all of her cultures have been negative.
Past History
Past History
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
ED Past Surgical History: Gynecological (TAHBSO) and Other (thyroidectom 15 yrs ago.)
Social History
Tobacco: Non-smoker
Alcohol: Occasional
Drug: None
Personal:
Living: alone
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
Family History
Family History: Other (Noncontributory)
Phy Exam
Physical Exam
Physical Exam:
CONSTITUTIONAL Vital signs reviewed, Patient alert and oriented to person, place and time. Well-appearing
HEAD atraumatic, normocephalic.
EYES eyelids normal to inspection, Extraocular muscles intact, Conjunctiva normal, Sclera normal.
NECK normal range of motion, Trachea midline, no jugular venous distention.
RESP no respiratory distress
BACK No obvious deformities
UPPER EXTREMITY gross motor strength normal. Patient has a close right joint incision. There is redness about the right shoulder incision that does appear to be more ecchymotic than cellulitic. There is a mild warmth. There is some fluctuance
at the midline portion of the incision at the cephalad third. She has somewhat limited range of motion due to the fact that she has a spacer in. This is unchanged as per the patient. There is normal distal perfusion. There is no drainage.
LOWER EXTREMITY Gross range of motion normal, Gross motor strength normal
NEURO Speech normal, No focal motor deficits include, Vish coma scale 15, Memory normal, Cranial Nerves intact to screening exam.
SKIN Skin warm, dry, and normal in color.
PSYCHIATRIC Patient oriented to person place and time, Normal affect.
Course
Orders/Labs/Results
Orders:
Orders
12/06/23 16:20
Chest Single View Frontal CR [CR Chest Single View] Urgent
Comment:
Reason For Exam: PICC location
12/06/23 16:34
Shoulder, Right 2 Views [CR Shoulder - Right Min 2 View] Urgent
Comment:
Reason For Exam: swelling
12/06/23 17:33
CPK [Creatine Phosphokinase] Urgent
CRP [C-Reactive Protein] Urgent
Complete Blood Count/With Diff Urgent
Comprehensive Metabolic Panel Urgent
ESR [Erythrocyte Sed Rate] Urgent
Abnormal Lab Results
12/06/23
17:33
RBC 3.83 L 10^6/uL
(4.20-5.40)
Hgb 10.4 L g/dL
(12.0-16.0)
Hct 31.2 L %
(37.0-47.0)
Eosinophils % 8.4 H %
(0-6)
ESR 24 H mm/hour
(0-20)
Glucose 105 H mg/dl
(70-99)
12/06/23 17:33
12/06/23 17:33
Vital Signs
Initial and Last Documented VS:
Initial Vital Signs
Temp Pulse Resp BP Pulse Ox
98.0 F 108 18 185/110 99
12/06/23 15:20 12/06/23 15:20 12/06/23 15:20 12/06/23 15:20 12/06/23 15:20
Last Documented Vital Signs
Temp Pulse Resp BP Pulse Ox
98.0 F 99 20 155/88 98
12/06/23 15:20 12/06/23 18:00 12/06/23 18:00 12/06/23 17:44 12/06/23 18:00
MDM/Problems Addressed
MDM/Problems Addressed:
shoulder discoloration, possible hemorrhagic seroma
*Pulse Oximetry
Patient hypoxic: no
*Critical Care Note
Total Time (30-74mins, 75-104mins- exclusive of procedures): Not Applicable
Data Reviewed
Source: patient and other (friend)
Prescriptions/Medications Considered But Not Given:
considered additional abx but already on daptomycin.
Patient Management
Discussion with other providers: Visual Coordinator (Case discussed with Dr. Orourke. Picture of the shoulder sent. He agrees with checking labs to ensure white count is normal and follow-up as outpatient with continuing daptomycin)
Escalation/DeEscalation of care consider admission/obs:
Case discussed with infectious disease. Agrees with checking labs to ensure no changes and more likely to be hemorrhagic
Update Note
Update Note:
White blood cell count normal. ESR better than previous. CRP negative. Do feel she is safe for discharge outpatient follow-up with orthopedics. She will also follow-up with infectious disease and continue her daptomycin.
ED Attending Note
-
Portions of this chart may have been created with voice recognition software.� Occasional wrong word or��sound alike� substitutions may have occurred due to the inherent limitations of voice recognition software.
Discharge Plan
Departure
Patient Disposition: Home (Routine Discharge)
Date of Disposition: 12/06/23
Time of Disposition: 18:12
Patient with high blood pressure during this ER visit?: Yes
Discharge Problem:
Ecchymosis
Instructions: Skin Rash (DC), BLOOD PRESSURE
Prescriptions:
No Action
atorvastatin 10 MG tablet
10 mg PO DIRECTED
Rx Instructions:
twice weekly (Thursday/ Thursday)
latanoprost 1 DROP drops
1 drp BOTH EYES HS
levothyroxine 88 MCG tablet
88 mcg PO MOTUWETHFRSA
cholecalciferol (vitamin D3) 2,000 UNITS tablet
2,000 units PO DAILY
Xiidra 1 EACH dropperette
1 drp BOTH EYES BID
Metamucil
2 cap PO HS
Metamucil
1 cap PO DAILY
dorzolamide-timolol [Cosopt] 10 ML drops
1 drp ophthalmic (eye) BID
multivitamin Tablet
1 tab PO DAILY
ascorbic acid (vitamin C) [Vitamin C] 1,000 mg Tablet
1,000 mg PO DAILY
collagen
2 dose PO DAILY
Rx Instructions:
2 scoops daily
mupirocin 1 APPLIC ointment
1 applic intranasal BID
Patient Comments:
pt states she started as ordered on and did own dose this am
Turmeric With Chondroitin
2 cap PO DAILY
ceftriaxone 2 gram Recon Soln
2,000 mg IV Q24H Qty: 42 0RF
aspirin 81 mg tablet,delayed release (DR/EC)
81 mg PO BID Qty: 60 0RF
Rx Instructions:
take with food
docusate sodium [Colace] 100 mg capsule
100 mg PO BID Qty: 1 0RF
sennosides [Senokot] 8.6 mg tablet
17.2 mg PO BID Qty: 2 0RF
magnesium hydroxide [Milk of Magnesia] 400 mg/5 mL suspension
30 ml PO HS PRN (Reason: Constipation) Qty: 1 0RF
gabapentin 300 mg capsule
300 mg PO HS Qty: 10 0RF
oxycodone 5 mg tablet
5 mg PO Q6H PRN (Reason: 1 tab moderate pain, 2 tabs severe pain) Qty: 30 0RF
Rx Instructions:
Ongoing therapy
acetaminophen 325 MG tablet
650 mg PO QID Qty: 30 0RF
L.acidoph, paracasei,B. lactis 1 EACH capsule
1 ea PO BID Qty: 0 0RF
pantoprazole [Protonix] 40 mg tablet,delayed release (DR/EC)
40 mg PO DAILY Qty: 30 3RF
hydrochlorothiazide 25 MG tablet
25 mg PO DAILY Qty: 30 0RF
Referrals:
Colt Summers DO [Family Provider] -
Activity Restrictions/Additional Instructions:
Return to immediately for fevers, increased swelling, increased redness or any other concerns. Please follow-up with infectious disease and orthopedics in the next 3 to 5 days.
Interventions
Interventions:
*Risk Screen - Suicide Last Done: 12/06/23 15:24
*General Assessment Last Done: 12/06/23 15:24
*Neglect/Abuse Screening Last Done: 12/06/23 15:24
ED- Fall Risk Assessment Last Done: 12/06/23 16:27
*ED COVID-19 Vaccine History Last Done: 12/06/23 15:24
Discharge Date and Time
Print Language: MALTESE
[2023-12-06 17:44] VITALS: BP 155/88
[2023-12-06 17:51] LABS: % Basophils 1.1 % (0-2); % Eosinophils 8.4 % (0-6); % Immature Granulocytes 0.2 % (0-0.5); % Lymphocytes 21.3 % (20.5-51.1); Absolute Basophils 0.1 10^3/uL (0-0.2); Absolute Eosinophils 0.5 10^3/uL (0-0.7); Absolute Lymphocytes 1.3 10^3/uL (1.2-3.4); Absolute Monocytes 0.5 10^3/uL (0.1-0.6); Absolute Neutrophils 3.8 10^3/uL (1.4-6.5); Hematocrit 31.2 % (37.0-47.0); Hemoglobin 10.4 g/dL (12.0-16.0); Mean Corp Hgb Conc. 33.3 g/dL (33.0-37.0); Mean Corpuscular Hgb 27.2 pg (27.0-31.0); Mean Corpuscular Volume 81.5 fL (81.0-99.0); Mean Platelet Volume 8.7 fL (7.4-10.4); Nucleated Red Blood Cells % 0 %; Platelet Count 283 10^3/uL (130-400); Red Blood Cell Count 3.83 10^6/uL (4.20-5.40); White Blood Cell Count 6.3 10^3/uL (4.8-10.8)
[2023-12-06 17:58] LABS: Erythrocyte Sed Rate 24 mm/hour (0-20)
[2023-12-06 18:08] LABS: ALT (SGPT) 24 U/L (0-35); AST (SGOT) 32 U/L (14-36); Albumin 4.1 g/dl (3.5-5.0); Alkaline Phosphatase 59 U/L (38-126); Blood Urea Nitrogen 16 mg/dl (7-17); Calcium 9.4 mg/dl (8.4-10.2); Carbon Dioxide 22 mmol/L (22-30); Chloride 102 mmol/L (98-107); Creatine Phosphokinase 53 U/L (30-135); Estimated Creatinine Clearance 44 ml/min; Glucose 105 mg/dl (70-99); Potassium 3.6 mmol/L (3.5-5.1); Sodium 137 mmol/L (135-145); Total Bilirubin 0.5 mg/dl (0.2-1.3); Total Protein 6.6 g/dl (6.3-8.2); eGFR > 60.00
[2023-12-06 18:09] LABS: C-Reactive Protein < 5.00 mg/L (0.0-10.00)
[2023-12-06 18:30] VITALS: BP 157/104
[2023-12-06 18:31] VITALS: BP 163/92
== END 2023-12-06 18:37 | disposition home or self-care (01) ==
LOC: EMR 15:11
PROVIDERS: EMERGENCY PHYSICIAN Emergency Medicine; FAMILY PHYSICIAN Family Medicine
DX: L76.82 Other postprocedural complications of skin and subcutaneous tissue (principal); S40.011A Contusion of right shoulder, initial encounter; X58.XXXA Exposure to other specified factors, initial encounter; R03.0 Elevated blood-pressure reading, without diagnosis of hypertension
CPT/HCPCS: 99284; 71045; 73030; 80053; 82550; 85025; 85652; 86140; 99285

== ENCOUNTER → 2024-01-01 12:43 | Outpatient (REF) | payer BC, MEDICARE, SELFPAY | LOC: RAD 12:43 | PROVIDERS: ATTENDING PHYSICIAN Specialist; FAMILY PHYSICIAN Family Medicine | DX: Z96.611 Presence of right artificial shoulder joint (principal) | CPT/HCPCS: 73200 ==

== ENCOUNTER → 2024-01-25 09:04 | Outpatient (REF) | payer BC, SELFPAY | LOC: HWRAD 09:04 | PROVIDERS: ATTENDING PHYSICIAN Nurse Practitioner Adult Health; FAMILY PHYSICIAN Family Medicine | DX: R91.1 Solitary pulmonary nodule (principal) | CPT/HCPCS: 71260; Q9967 ==

== ENCOUNTER 2024-02-02 07:00 | Inpatient (IN) | payer BC, SELFPAY ==
[2024-01-05 10:38] VITALS: BMI 20.4
[2024-01-05 11:30] LABS: Hematocrit 37.5 % (37.0-47.0); Hemoglobin 12.2 g/dL (12.0-16.0); Mean Corp Hgb Conc. 32.5 g/dL (33.0-37.0); Mean Corpuscular Hgb 28.1 pg (27.0-31.0); Mean Corpuscular Volume 86.4 fL (81.0-99.0); Mean Platelet Volume 9.1 fL (7.4-10.4); Platelet Count 328 10^3/uL (130-400); Red Blood Cell Count 4.34 10^6/uL (4.20-5.40); Red Cell Dist. Width 14.8 % (11.5-14.5); White Blood Cell Count 4.8 10^3/uL (4.8-10.8)
[2024-01-05 12:07] LABS: ALT (SGPT) 18 U/L (0-35); AST (SGOT) 25 U/L (14-36); Albumin 4.4 g/dl (3.5-5.0); Alkaline Phosphatase 47 U/L (38-126); Blood Urea Nitrogen 14 mg/dl (7-17); Calcium 10.1 mg/dl (8.4-10.2); Carbon Dioxide 27 mmol/L (22-30); Chloride 101 mmol/L (98-107); Estimated Creatinine Clearance 50 ml/min; Glucose 91 mg/dl (70-99); Potassium 3.6 mmol/L (3.5-5.1); Sodium 142 mmol/L (135-145); Total Bilirubin 0.4 mg/dl (0.2-1.3); Total Protein 7.1 g/dl (6.3-8.2); eGFR > 60.00
[2024-01-05 12:12] LABS: C-Reactive Protein < 5.00 mg/L (0.0-10.00)
[2024-01-05 12:17] LABS: Erythrocyte Sed Rate 20 mm/hour (0-20)
[2024-01-06 10:56] LABS: Glycohemoglobin (HgbA1c) 5.3 % (4.0-5.6)
[2024-01-27 09:43] VITALS: BMI 20.4
[2024-02-02] VITALS (12 sets, daily range): BP systolic 109–132; BP diastolic 58–75; BMI 20.4
[2024-02-02] MEDS: MOBIC 15 MG PO (07:49)
[2024-02-02] MEDS: TYLENOL 1000 MG PO (07:49)
[2024-02-02] MEDS: DILAUDID 0.25 MG IV ×2 (10:44→10:58)
== END 2024-02-02 13:15 | disposition home or self-care (01) | DRG 483 ==
LOC: PACUI 07:00
PROVIDERS: ADMITTING PHYSICIAN Specialist; FAMILY PHYSICIAN Family Medicine; REFERRING PHYSICIAN Internal Medicine Infectious Disease
PROC: 0RRJ0JZ Replacement of Right Shoulder Joint with Synthetic Substitute, Open Approach (ICD-10-PCS; 2024-02-02)
PROC: 0RPJ08Z Removal of Spacer from Right Shoulder Joint, Open Approach (ICD-10-PCS; 2024-02-02)
DX: T84.59XA Infection and inflammatory reaction due to other internal joint prosthesis, initial encounter (principal); E03.9 Hypothyroidism, unspecified; E78.2 Mixed hyperlipidemia; I10 Essential (primary) hypertension; Z79.899 Other long term (current) drug therapy; Z79.890 Hormone replacement therapy; Z88.0 Allergy status to penicillin; Z88.4 Allergy status to anesthetic agent; Y79.2 Prosthetic and other implants, materials and accessory orthopedic devices associated with adverse incidents
CPT/HCPCS: 36415; 73020; 80053; 83036; 85027; 85652; 86140; 87070; 93005

== ENCOUNTER 2024-03-14 09:02 | Outpatient (RCR) | payer BC, SELFPAY | END 2024-03-14 23:59 | disposition home or self-care (01) | LOC: RPT 09:02 | PROVIDERS: ATTENDING PHYSICIAN Physician Assistant Surgical; FAMILY PHYSICIAN Family Medicine | DX: Z47.1 Aftercare following joint replacement surgery (principal); Z96.611 Presence of right artificial shoulder joint; Z73.6 Limitation of activities due to disability | CPT/HCPCS: 97010; 97110; 97140; 97162 ==

== ENCOUNTER 2024-04-14 19:02 | Outpatient (RCR) | payer BC, SELFPAY | END 2024-04-14 23:59 | disposition home or self-care (01) | LOC: RPT 19:02 | PROVIDERS: ATTENDING PHYSICIAN Physician Assistant Surgical; FAMILY PHYSICIAN Family Medicine | DX: Z47.1 Aftercare following joint replacement surgery (principal); Z96.611 Presence of right artificial shoulder joint; M62.81 Muscle weakness (generalized); Z73.6 Limitation of activities due to disability; M25.511 Pain in right shoulder | CPT/HCPCS: 97010; 97110 ==

== ENCOUNTER 2024-05-06 15:01 | Outpatient (RCR) | payer BC, SELFPAY | END 2024-05-06 23:59 | disposition home or self-care (01) | LOC: RPT 15:01 | PROVIDERS: ATTENDING PHYSICIAN Physician Assistant Surgical; FAMILY PHYSICIAN Family Medicine | DX: Z47.1 Aftercare following joint replacement surgery (principal); Z96.611 Presence of right artificial shoulder joint; Z73.6 Limitation of activities due to disability | CPT/HCPCS: 97010; 97110 ==

== ENCOUNTER 2024-06-02 19:06 | Outpatient (RCR) | payer BC, SELFPAY | END 2024-06-06 09:52 | disposition home or self-care (01) | LOC: RPT 19:06 | PROVIDERS: ATTENDING PHYSICIAN Physician Assistant Surgical; FAMILY PHYSICIAN Family Medicine | DX: Z47.1 Aftercare following joint replacement surgery (principal); Z73.6 Limitation of activities due to disability; M62.81 Muscle weakness (generalized); M25.511 Pain in right shoulder; Z96.611 Presence of right artificial shoulder joint | CPT/HCPCS: 97010; 97110 ==

== ENCOUNTER → 2025-01-26 09:06 | Outpatient (REF) | payer BC, SELFPAY ==
[2025-01-26 10:12] LABS: Hematocrit 41.3 % (37.0-47.0); Hemoglobin 13.8 g/dL (12.0-16.0); Mean Corp Hgb Conc. 33.4 g/dL (33.0-37.0); Mean Corpuscular Volume 84.5 fL (81.0-99.0); Nucleated Red Blood Cells % 0 %; Platelet Count 274 10^3/uL (130-400); Red Cell Dist. Width 12.9 % (11.5-14.5)
[2025-01-26 10:47] LABS: Glycohemoglobin (HgbA1c) 5.9 % (4.0-5.9)
[2025-01-26 10:48] LABS: ALT (SGPT) 28 U/L (0-35); AST (SGOT) 29 U/L (14-36); Albumin 4.5 g/dl (3.5-5.0); Alkaline Phosphatase 47 U/L (38-126); Blood Urea Nitrogen 12 mg/dl (7-17); Calcium 9.4 mg/dl (8.4-10.2); Carbon Dioxide 30 mmol/L (22-30); Chloride 99 mmol/L (98-107); Glucose 99 mg/dl (70-99); HDL Cholesterol 58 mg/dl; LDL Cholesterol, Calculated 138 mg/dl; Potassium 3.7 mmol/L (3.5-5.1); Sodium 134 mmol/L (135-145); Total Protein 7.2 g/dl (6.3-8.2); Very Low Density Lipoprotein 27 mg/dl (0-30); eGFR > 60.00
[2025-01-26 10:53] LABS: Urine Character Clear (Clear)
[2025-01-26 10:59] LABS: Vitamin D, 25-OH*** 34.5 ng/mL (30-80)
[2025-01-26 13:42] LABS: TSH 4.83 uIU/ml (0.47-4.68)
== END ==
LOC: REG 09:06
PROVIDERS: ATTENDING PHYSICIAN Family Medicine
DX: Z00.00 Encounter for general adult medical examination without abnormal findings (principal); R73.01 Impaired fasting glucose; E03.8 Other specified hypothyroidism; E78.2 Mixed hyperlipidemia
CPT/HCPCS: 36415; 80053; 80061; 81003; 82306; 83036; 84439; 84443; 85025